=== PATIENT | male | born 1935 | race African-American/Black ===

== ENCOUNTER 2025-04-16 12:07 | Emergency (ER) | payer OTHER ==
[~2025-04-16] VITALS: Ht 172.7 cm; Wt 70.0 kg
[2025-04-16 12:19] VITALS: O2SAT 97
[2025-04-16] MEDS: SODIUM CHLORIDE 0.9% 1,000 ML IV ONE (14:13)
[2025-04-16 15:07] LABS: BASOPHILS % 0.5 % (0.0-2.0); EOSINOPHILS % 0.4 % (0.0-5.0); HEMATOCRIT. 27.5 % (42.0-52.0); HEMOGLOBIN. 9.3 g/dL (14.0-18.0); LYMPHOCYTES % 19.2 % (20.0-50.0); MEAN PLATELET VOLUME 9.7 fl (7.4-10.4); MONOCYTES % 11.6 % (2.0-8.0); NEUTROPHILS % 68.3 % (40.0-76.0); PLATELET 224 x1000/uL (130-400); RED BLOOD CELL COUNT 3.41 mill/uL (4.7-6.1); RED CELL DISTRIBUTION WIDTH 15.6 % (11.6-14.6)
[2025-04-16 15:26] LABS: CREATININE 0.8 mg/dL (0.6-1.3)
[2025-04-16 15:27] LABS: TROPONIN I HIGH SENSITIVITY 18 ng/L (3.0-53); UREA NITROGEN BLOOD 7 mg/dL (9-23)
[2025-04-16 15:28] LABS: ASPARTATE AMINOTRANSFERASE 63 IU/L (<34)
[2025-04-16 15:29] LABS: BILIRUBIN DIRECT 0.3 mg/dL (<=3.0); BILIRUBIN TOTAL 0.6 mg/dL (0.1-1.0); PROTEIN TOTAL 4.4 g/dL (6.0-8.3)
[2025-04-16 15:30] LABS: INR 1.1
[2025-04-16] MEDS: POTASSIUM CHLORIDE 20MEQ TABLET SR PO SCH (16:12)
[2025-04-16] MEDS: KCL 20MEQ/100ML PREMIX 100 ML IV SCH (16:12)
[2025-04-16] MEDS: LEVOFLOXACIN 750MG PREMIX 150 ML IV SCH (16:37)
[2025-04-16] MEDS ORDERED: ZOLPIDEM TARTRATE 5MG TABLET PO PRN (17:15)
[2025-04-16] MEDS ORDERED: ONDANSETRON HCL 4MG/2ML INJ IV PRN (17:15)
[2025-04-16] MEDS ORDERED: CLONIDINE 0.1MG TABLET PO PRN (17:15)
[2025-04-16] MEDS ORDERED: HYDROCODONE/ACETAMINOPHEN 5/325MG TABLET PO PRN (17:15)
[2025-04-16] MEDS ORDERED: MAGNESIUM/ALUMINUM HYDROXIDE/SIMETHICONE 30ML UDC PO PRN (17:15)
[2025-04-16] MEDS ORDERED: ACETAMINOPHEN 325MG TABLET PO PRN (17:15)
[2025-04-16] MEDS: CALCIUM GLUCONATE 100MG/ML 10ML VIAL IV SCH (17:47)
[2025-04-16] MEDS: SODIUM CHLORIDE 0.9% 1,000 ML IV SCH (17:47)
[2025-04-16] MEDS ORDERED: CEFTRIAXONE 1GM/50ML 50 ML IV SCH (18:00)
[2025-04-16] MEDS ORDERED: AZITHROMYCIN 500MG/250ML 250 ML IV SCH (18:00)
[2025-04-16 18:07] LABS: TROPONIN I HIGH SENSITIVITY 22 ng/L (3.0-53)
[2025-04-16] MEDS: ENOXAPARIN 40MG/0.4ML SYR SUBCUT SCH (19:12)
[2025-04-16 20:00] VITALS: BP 128/80; PULSE 72; RESP 19; TEMP 36.6; O2SAT 100
[2025-04-17] MEDS ORDERED: PANTOPRAZOLE SODIUM 40 MG/VIAL IV SCH (09:00)
== END 2025-04-16 20:31 | disposition short-term general hospital (02) ==
LOC: ER 12:07 → EDBEDREQTM 17:32 → EDBEDREQ 17:32 → ER 20:31 → CMPBEDREQ 04-17 07:24
DX: J18.9 Pneumonia, unspecified organism (principal); R55 Syncope and collapse; G31.9 Degenerative disease of nervous system, unspecified; I10 Essential (primary) hypertension; I44.0 Atrioventricular block, first degree
CPT/HCPCS: 99285; 96365; 70450; 71045; 96367; 96375; 87426; 80076; 80048; 82330; 83605; 85025; 85610; 86850; 86900; 86901; 87040; 84484; 36415; 93005; 96368; 96372; J1650; J3480; J7030; J1956; J0612